=== PATIENT | male | born 1995 | race Caucasian/White ===

== ENCOUNTER 2017-04-12 20:57 | Emergency (ER) | payer OTHER ==
[~2017-04-12] VITALS: Ht 185.4 cm; Wt 79.5 kg
[2017-04-12 20:58] VITALS: BP 139/79; TEMP 98.9
[2017-04-12 22:42] VITALS: PULSE 91
== END 2017-04-12 22:43 | disposition home or self-care (01) ==
LOC: COL.ER 20:57
DX: S49.92XA Unspecified injury of left shoulder and upper arm, initial encounter (principal); W18.39XA Other fall on same level, initial encounter; Y93.61 Activity, american tackle football; Y92.830 Public park as the place of occurrence of the external cause